=== PATIENT | male | born 2005 | race African-American/Black ===

== ENCOUNTER 2024-03-05 19:05 | Emergency (ER) | payer OTHER ==
[2024-03-05 19:17] VITALS: RESP 18; TEMP 98.9; BMI 24.3
[2024-03-05 20:18] LABS: BASO % 1.5 % (0-2.0); EOS % 0.1 % (0-4.5); HEMATOCRIT 39.3 % (35.4-49); HEMOGLOBIN 13.3 GM/dL (11.7-16.9); LYMPH % 14.2 % (8-40); MCH 29.5 pg (25.7-33.7); MCHC 33.7 g/dl (32.0-35.9); MEAN CELL VOLUME 87.4 fl (80-96); MEAN PLT VOLUME 7.5 fl (7.5-11.1); NEUT % 77.2 % (42.8-82.8); PLATELET COUNT 260 10^3/uL (134-434); RDW 13.3 % (11.9-15.9); WHITE BLOOD COUNT 5.3 K/mm3 (4.0-10.0)
[2024-03-05 20:39] LABS: POTASSIUM 3.7 mmol/L (3.5-5.1)
[2024-03-05 20:43] LABS: ALBUMIN 4.3 g/dl (3.4-5.0); BLOOD UREA NITROGEN 14.4 mg/dL (7-18)
[2024-03-05 20:45] LABS: CREATININE 1.2 mg/dL (0.55-1.3)
[2024-03-05 20:47] LABS: BILIRUBIN,TOTAL 1.6 mg/dL (0.2-1); TOT PROT 7.8 g/dl (6.4-8.2)
[2024-03-05 21:10] VITALS: BP 145/67; PULSE 90
== END 2024-03-05 21:39 | disposition home or self-care (01) ==
LOC: JER 19:05
DX: R11.0 Nausea (principal)
CPT/HCPCS: 36415; 80053; 83690; 85025; 99283-25